=== PATIENT | male | born 1965 | race Caucasian/White ===

== ENCOUNTER 2018-04-25 14:36 | Emergency (ER) | payer MEDICARE ==
[~2018-04-25] VITALS: Ht 180.3 cm; Wt 81.1 kg
[~2018-04-25 14:36] MED LIST: ALBU2.5V8 IH; ALPR1TAB2 PO; CRESTOR5 MG PO; CYCL-331 PO; ESOM40CA PO; GLYB5TAB3 PO; HYDR-2161 PO; LISI-334 PO; NAPR-514 PO; NYST1000 PO; TRAM50TA PO; XOPENEX CO1.25 MG/0. IH; XOPENEX HFA15 GM IH; crestor; flexeril PO
[2018-04-25] MEDS ORDERED: IPRATRPIUM/ALBUTEROL 0.5/2.5MG 3 ML NEBU. NEB ONE (15:15)
--- NOTE | 2018-04-25 15:43 | PHYS DOC ---
Past History Past Medical History: Diabetes, High Cholesterol, Hypertension, Lung Disease, Other Past Surgical History: Other Smoking: Cigarettes, Less than 1pk/day Alcohol Use: None Drug Use: None Adult General Chief Complaint Chief Complaint: SHORTNESS OF BREATH HPI HPI 52-year-old male presents with shortness of breath. Patient states that he has had increasing shortness of breath for the last couple of days. He's been having some shortness of breath and increased cough for the last 1 week. He denies productive sputum. He has a history of pneumonia. He denies fever or chills. He denies chest pain or diaphoresis. Patient is a cigarette smoker. Review of Systems Review of Systems Constitutional: Denies fever or chills [] Eyes: Denies change in visual acuity, redness, or eye pain [] HENT: Denies nasal congestion or sore throat [] Respiratory: Cough with shortness of breath [] Cardiovascular: No additional information not addressed in HPI [] GI: Denies abdominal pain, nausea, vomiting, bloody stools or diarrhea [] : Denies dysuria or hematuria [] Musculoskeletal: Denies back pain or joint pain [] Integument: Denies rash or skin lesions [] Neurologic: Denies headache, focal weakness or sensory changes [] Endocrine: Denies polyuria or polydipsia [] All other systems were reviewed and found to be within normal limits, except as documented in this note. Current Medications Current Medications Current Medications Medications (Trade) Dose Ordered Sig/Fausto Start Time Stop Time Status Last Admin Dose Admin Albuterol/ Ipratropium (Duoneb) 3 ml 1X ONCE 04/25/18 15:15 04/25/18 15:16 DC 04/25/18 15:27 3 ML Allergies Allergies Allergies Coded Allergies Type Severity Reaction Last Updated Verified bacitracin Allergy Intermediate EYES SWELL- EYE DROPS ONLY 01/14/15 Yes ciprofloxacin Allergy Intermediate EYES SWELL- EYE DROPS ONLY 01/14/15 Yes neomycin Allergy Intermediate EYES SWELL- EYE DROPS ONLY 01/14/15 Yes polymyxin B Allergy Intermediate EYES SWELL- EYE DROPS ONLY 01/14/15 Yes sulfacetamide Allergy Intermediate EYES SWELL, EYE DROP ONLY 01/14/15 Yes prochlorperazine edisylate Adverse Reaction Intermediate Increase N/V 04/13/13 Yes prochlorperazine maleate Adverse Reaction Intermediate Increase N/V 04/13/13 Yes Physical Exam Physical Exam Constitutional: Well developed, well nourished, no acute distress, non-toxic appearance. [] HENT: Normocephalic, atraumatic, bilateral external ears normal, oropharynx moist, no oral exudates, nose normal. [] Eyes: PERRLA, EOMI, conjunctiva normal, no discharge. [] Neck: Normal range of motion, no tenderness, supple, no stridor. [] Cardiovascular:Heart rate regular rhythm, no murmur [] Lungs & Thorax: Inspiratory and expiratory wheezing at the right base[] Abdomen: Bowel sounds normal, soft, no tenderness, no masses, no pulsatile masses. [] Skin: Warm, dry, no erythema, no rash. [] Back: No tenderness, no CVA tenderness. [] Extremities: No tenderness, no cyanosis, no clubbing, ROM intact, no edema. [] Neurologic: Alert and oriented X 3, normal motor function, normal sensory function, no focal deficits noted. [] Psychologic: Affect normal, judgement normal, mood normal. [] Current Patient Data Lab Results Laboratory Tests Test 04/25/18 14:55 Glucose (Fingerstick) 196 mg/dL (70-99) H EKG EKG Sinus tachycardia, rate 105, right bundle branch block, normal axis, no ST elevations.[] Radiology/Procedures Radiology/Procedures [] Impressions: Single view chest 04/25/2018 CLINICAL INDICATION: Shortness of breath. COMPARISON: Chest 02/12/2016. FINDINGS: There is mild peribronchiolar thickening. No pleural effusion, pneumothorax or focal consolidation. Cardiac and mediastinal silhouettes are unremarkable. IMPRESSION: Mild peribronchial thickening, can be seen with viral etiologies or reactive airways. Electronically signed by: Mary Beth Huff MD (04/25/2018 3:47 PM) [facility] [place] DICTATED AND SIGNED BY: MARY BETH HUFF MD DATE: 04/25/18 1546 CC: DEBORAH BRUNSON DO; SCOTT LO MD Course & Med Decision Making Course & Med Decision Making Pertinent Labs and Imaging studies reviewed. (See chart for details) The patient's chest x-ray suggestive of either bronchitis or reactive airway disease. I believe the patient is having a COPD exacerbation. I will treat him with 125 of Solu-Medrol as well as 3 more days of prednisone at home. We'll also give him a prescription for albuterol inhaler. He is stable for discharge at this time. [] Dragon Disclaimer Dragon Disclaimer This electronic medical record was generated, in whole or in part, using a voice recognition dictation system. Departure Departure: Impression: Primary Impression: COPD exacerbation Disposition: HOME, SELF-CARE Condition: STABLE Referrals: SCOTT LO MD (PCP) Patient Instructions: Chronic Obstructive Pulmonary Disease Exacerbation, Easy- to-Read Scripts Prednisone (PREDNISONE) 10 Mg Tablet 50 MG PO DAILY for COPD for 3 Days, #15 TAB Prov: DEBORAH BRUNSON DO 04/25/18 Albuterol Sulfate (VENTOLIN HFA INHALER) 18 Gm Hfa.aer.ad 2 PUFF IH PRN Q4HRS PRN for FOR ASTHMA, #1 INHALER 0 Refills Prov: DEBORAH BRUNSON DO 04/25/18 DEBORAH BRUNSON DO Apr 25, 2018 15:43
[2018-04-25 15:49] LABS: BASO # 0.2 x10^3/uL (0.0-0.2); BASO % 1 % (0-3); EOS # 0.1 x10^3/uL (0.0-0.7); EOS % 1 % (0-3); HEMATOCRIT 45.3 % (39.0-53.0); LYMPH # 2.8 x10^3/uL (1.0-4.8); LYMPH % 16 % (24-48); MEAN CORPUSCULAR HEMOGLOBIN 28 pg (25-35); MEAN CORPUSCULAR HGB CONC 33 g/dL (31-37); MEAN CORPUSCULAR VOLUME 85 fL (79-100); MONO # 1.3 x10^3/uL (0.0-1.1); MONO % 7 % (0-9); NEUT # 13.4 x10^3uL (1.8-7.7); NEUT % 75 % (31-73); PLATELET COUNT 286 x10^3/uL (140-400); RED BLOOD COUNT 5.32 x10^6/uL (4.30-5.70); RED CELL DISTRIBUTION WIDTH 13.9 % (11.5-14.5); WHITE BLOOD COUNT 17.8 x10^3/uL (4.0-11.0)
--- NOTE | 2018-04-25 15:50 | RAD ---
Single view chest 04/25/2018 CLINICAL INDICATION: Shortness of breath. COMPARISON: Chest 02/12/2016. FINDINGS: There is mild peribronchiolar thickening. No pleural effusion, pneumothorax or focal consolidation. Cardiac and mediastinal silhouettes are unremarkable. IMPRESSION: Mild peribronchial thickening, can be seen with viral etiologies or reactive airways. Electronically signed by: Gregory Huff MD (04/25/2018 3:47 PM) [facility] [place]
[2018-04-25 16:14] LABS: ALBUMIN 3.5 g/dL (3.4-5.0); ALBUMIN/GLOBULIN RATIO 0.9 (1.0-1.7); CREATININE 0.7 mg/dL (0.7-1.3); GFR 118.9; POTASSIUM 3.6 mmol/L (3.5-5.1); TOTAL BILIRUBIN 0.4 mg/dL (0.2-1.0); TOTAL PROTEIN 7.5 g/dL (6.4-8.2)
[2018-04-25 16:27] LABS: % ATYL 1 % (0-0); % EOS 1 % (0-5); % LYMPHS 12 % (24-48); % MONOS 7 % (0-10); % SEGS 79 % (35-66); PLT ESTIMATE ADEQUATE (ADEQUATE)
[2018-04-25 16:28] LABS: ANISOCYTOSIS SLIGHT
[2018-04-25] MEDS ORDERED: PRED-220 PO (16:48)
[2018-04-25] MEDS ORDERED: ALBU2.5V8 IH (16:48)
[2018-04-25] MEDS ORDERED: methylPREDNISolone SOD SUCC PF 125 MG/2 ML VIAL. IV ONE (17:00)
[2018-04-25 17:14] VITALS: BP 110/61
--- NOTE | 2018-04-25 17:45 | EKG ---
[address] [address] Test Date: 2018-04-25 Test Time: 14:54:36 Pat Name: BULL DOCKERY Department: Room: Gender: M Mask Inspector: MISHEL : [id number] Requested By: DEBORAH BRUNSON Order Number: [id number] Reading MD: Chuy Talbot Measurements Intervals [place] Rate: 105 P: 90 SC: 154 QRS: 57 QRSD: 146 T: 12 QT: 350 QTc: 467 Interpretive Statements SINUS TACHYCARDIA RIGHT BUNDLE BRANCH BLOCK RVH WITH REPOLARIZATION ABNORMALITY Electronically Signed On 04-27-2018 10:59:22 [employer] EQU[employer]MENT MECH[employer]IC by Chuy Talbot
== END 2018-04-25 17:38 | disposition home or self-care (01) ==
LOC: ER 14:36
DX: J44.1 Chronic obstructive pulmonary disease with (acute) exacerbation (principal); E11.9 Type 2 diabetes mellitus without complications; E78.00 Pure hypercholesterolemia, unspecified; I10 Essential (primary) hypertension; F17.210 Nicotine dependence, cigarettes, uncomplicated; Z88.1 Allergy status to other antibiotic agents; Z88.2 Allergy status to sulfonamides; Z88.8 Allergy status to other drugs, medicaments and biological substances
CPT/HCPCS: 36415; 71045; 80053; 82947; 84484; 85007; 85025; 93005; 96374; 99284; J2930; J7620